=== PATIENT | female | born 1985 | race Caucasian/White ===

== ENCOUNTER 2018-12-13 19:44 | Emergency (ER) | payer BC, OTHER ==
[2018-12-13 20:18] VITALS: TEMP 98.2; BMI 54.8
[2018-12-13] MEDS ORDERED: MECLIZINE HCL 25 MG TABLET (FP) PO ONE (21:14)
[2018-12-13] MEDS ORDERED: SODIUM CHLORIDE 0.9% 500 ML INFUS.BAG IV ONE ×2 (21:14→23:10)
[2018-12-13] MEDS ORDERED: MECLIZINE HCL 25 MG TABLET (FP) ONE (21:46)
--- NOTE | 2018-12-13 21:59 | PDOC ---
History of Present Illness - General Chief Complaint: Lightheaded Stated Complaint: DIZZINESS Time Seen by Provider: 12/13/18 20:50 - History of Present Illness Initial Comments: Ms. Gaines is a 33 y/o female with no significant PMH presenting with headache, vertigo, nausea, vomiting. Reports that she started on a new OCP (femynor) 1 month ago. Reports that she began having a headache and vertigo 1 week ago. Reports that she feels generalized weakness. She has had episodes of vertigo before but reports that this is worse. Nausea/vomiting that started today. Reports mild shortness of breath. Reports that she is currently on her period but does not report any heavy bleeding. Denies chest pain, abdominal pain, shortness of breath, hematemesis, hematochezia, hematuria, dysuria. Reports bilateral ear pain on external movement. Past History - Past Medical History Allergies/Adverse Reactions: Allergies Allergy/AdvReac Type Severity Reaction Status Date / Time No Known Drug Allergies Allergy Verified 11/11/12 16:03 Home Medications: Ambulatory Orders No Home Medications 0 dose .ROUTE UTDICT 11/11/12 Acetaminophen W/ Codeine #3 [Tylenol # 3] 1 - 2 tab PO Q6H PRN #60 tablet Meclizine HCl [Antivert -] 25 mg PO QID PRN #30 tablet 12/13/18 Anemia: No Cardiac Disorders: No CVA: No COPD: No Seizures: No Thyroid Disease: No Other medical history: Vertigo - Suicide/Smoking/Psychosocial Hx Smoking History: Never smoked Have you smoked in the past 12 months: No Hx Alcohol Use: Yes (socially) Substance Use Type: None, Alcohol Review of Systems - Review of Systems Comments:: ROS GENERAL/CONSTITUTIONAL: No fever or chills. Reports general weakness. HEAD, EYES, EARS, NOSE AND THROAT: No change in vision. Reports ear pain on external manipulation without discharge. No sore throat._ CARDIOVASCULAR: No chest pain or shortness of breath_ RESPIRATORY: Denies cough, hemoptysis_ GASTROINTESTINAL: Reports nausea and vomiting. No diarrhea or constipation._ GENITOURINARY: No dysuria, frequency, or change in urination._ MUSCULOSKELETAL: No joint or muscle swelling or pain. No neck or back pain._ SKIN: No rash_ NEUROLOGIC: Reports headache and vertigo. Denies loss of consciousness, or change in strength/sensation._ ENDOCRINE: No increased thirst. No abnormal weight change_ HEMATOLOGIC/LYMPHATIC: No anemia, easy bleeding, or history of blood clots._ ALLERGIC/IMMUNOLOGIC: No hives or skin allergy._ *Physical Exam - Vital Signs Last Vital Signs Temp Pulse Resp BP Pulse Ox 98.2 F 89 20 151/90 99 12/13/18 20:08 12/13/18 20:08 12/13/18 20:08 12/13/18 20:08 12/13/18 20:08 - Physical Exam Comments: GENERAL: Awake, alert, and oriented to person/place/time, in no acute distress_ HEAD: No signs of trauma, normocephalic, atraumatic _ EYES: PERRLA, EOMI, sclera anicteric, conjunctiva clear. No nystagmus on far lateral gaze. ENT: Hearing grossly normal, nares patent, oropharynx clear without exudates. No uvular deviation. Moist mucosa. Mild erythema in bilateral ear canals, TMs are non-erythematous bilaterally. NECK: Normal ROM, supple, no lymphadenopathy, JVD, or masses_ LUNGS: No distress, speaks in full sentences, clear to auscultation bilaterally _ HEART: Regular rate and rhythm, normal S1 and S2, no murmurs appreciated, peripheral pulses normal and equal bilaterally._ ABDOMEN: Soft, nontender, normoactive bowel sounds. No guarding, no rebound. No masses_ EXTREMITIES: Normal inspection, Normal range of motion, no edema. No clubbing or cyanosis_ NEUROLOGICAL: Cranial nerves II through XII grossly intact. Normal speech. Mild swaying on Romberg's. Cerebellar testing intact. Mildly labored extension/ flexion of the hip, but 5/5 strength. Dorsiflexion/plantarflexion 5/5 bilaterally. Full Time strength equal bilaterally 5/5, flexion/extension of arms 5/5 equal bilaterally. SKIN: Warm, Dry, normal turgor, no rashes or lesions noted_ ED Treatment Course - LABORATORY CBC & Chemistry Diagram: 12/13/18 21:45 12/13/18 21:45 Medical Decision Making - Medical Decision Making 33F with hx of new OCP 1 month ago, presents with 1 week of headache and vertigo and 1 day of nausea/vomiting. Obtain CBC, CMP, trop, EKG, TSH, UA, urine preg. 12/13/18 2200 Patient reports that vertigo has improved with antivert. Reports that she still feels nauseated. Reports that pain in her bilateral ears is now bothering her. Reports that it is worsened by external movement. Exam shows mild erythema in the bilateral external ear canals but no erythema on bilateral TMs. 12/13/18 22:44 EKG shows NSR, 61 bpm, no axis deviation, no ST elevation/depression, QTc 430. 12/13/18 23:19 Pt reassessed. Reports vertigo much improved. Urine test positive. Will check serum at patient's request. 12/13/18 23:49 Serum preg negative. POC pelvic US shows no IUP, uterine fibroid, no free fluid in the pelvis. 12/13/18 23:56 Vertigo has resolved. Plan to d/c home with meclizine, f/u PCP and neurologist. *DC/Admit/Observation/Transfer Diagnosis at time of Disposition: Vertigo - Discharge Dispostion Disposition: HOME Condition at time of disposition: Stable Decision to Admit order: No - Prescriptions Prescriptions: Meclizine HCl [Antivert -] 25 mg PO QID PRN #30 tablet PRN Reason: Vertigo - Referrals Referrals: Maureen Brownlee MD [Primary Care Provider] - Todd Montes De Oca MD [Staff Physician] - - Patient Instructions Additional Instructions: Please take Antivert 25 mg four times per day as needed for vertigo. Please make a follow up appointment with your PCP (Dr. Brownlee) and with a neurologist (Dr. Montes De Oca or a neurologist your PCP refers). If you experience any new, worsening, or concerning symptoms, including severe headache, severe nausea/vomiting, weakness, severe dizziness, chest pain, shortness of breath, blood in the vomit or stool or urine, or any other concerning symptoms, please return to the emergency room. - Post Discharge Activity
[2018-12-13 22:01] LABS: BASO % 1.5 % (0-2.0); EOS % 3.6 % (0-4.5); HEMATOCRIT 38.5 % (32.4-45.2); LYMPH % 34.4 % (8-40); MCH 26.9 pg (25.7-33.7); MCHC 33.8 g/dl (32.0-36.0); MEAN CELL VOLUME 79.4 fl (80-96); MEAN PLT VOLUME 10.3 fl (7.5-11.1); MONO % 4.6 % (3.8-10.2); NEUT % 55.9 % (42.8-82.8); PLATELET COUNT 292 K/MM3 (134-434); RBC 4.85 M/mm3 (3.60-5.2); RDW 14.5 % (11.6-15.6); WHITE BLOOD COUNT 10.3 K/mm3 (4.0-10.0)
[2018-12-13 22:13] LABS: INR 1.06 (0.83-1.09); PROTHROMBIN TIME (PATIENT) 12.5 SEC (9.7-13.0)
[2018-12-13 22:21] LABS: EPI CELLS 1.1 /HPF (0-5/HPF); HYALINE CASTS 1 /lpf (0-8); PH,URINE 5.5 (5.0-8.0); URINE APPEARANCE CLEAR; URINE BACTERIA 12.9 /hpf (NEGATIVE); URINE BILIRUBIN NEGATIVE (NEGATIVE); URINE COLOR YELLOW; URINE GLUCOSE (UA) NEGATIVE (NEGATIVE); URINE KETONE NEGATIVE (NEGATIVE); URINE LEUK ESTERASE NEGATIVE (NEGATIVE); URINE NITRITE NEGATIVE (NEGATIVE); URINE PROTEIN NEGATIVE (NEGATIVE); URINE RBC 72 /hpf (0-4); URINE UROBILINOGEN 0.2 mg/dL (0.2-1.0); URINE WBC 2 /hpf (0-5)
[2018-12-13 22:27] VITALS: BP 125/86; PULSE 68
[2018-12-13 22:36] LABS: ALBUMIN 3.6 g/dl (3.4-5.0); BILIRUBIN,TOTAL 0.2 mg/dL (0.2-1); BLOOD UREA NITROGEN 7.2 mg/dL (7-18); CALCIUM 8.9 mg/dL (8.5-10.1); CREATININE 0.7 mg/dL (0.55-1.3); POTASSIUM 4.3 mmol/L (3.5-5.1); TOT PROT 7.2 g/dl (6.4-8.2)
--- NOTE | 2018-12-14 00:06 | PDOC ---
Documentation entered by Krunal Zuleta SCRIBE, acting as scribe for Isabella Wilde MD. Isabella Wilde MD: This documentation has been prepared by the Song bishop Daniel, SCRIBE, under my direction and personally reviewed by me in its entirety. I confirm that the documentation accurately reflects all work, treatment, procedures, and medical decision making performed by me. Attending Attestation - Resident Resident Name: Stephen Alexandre - ED Attending Attestation I have performed the following: I have examined & evaluated the patient, The case was reviewed & discussed with the resident, I agree w/resident's findings & plan - HPI HPI: 12/13/18 21:11 The patient is a 33 year old female with no past medical history here today for evaluation of headache, vertigo, and vomiting. The patient reports that she started a new control 1 week ago and has since had 1 week of headache and vertigo. She notes today that she had nausea and vomiting. She also notes that she has had episodes of vertigo in the past but they have never been this bad. Patient states that her period started on friday (12/09/18) and has been normal. Patient denies headache, lightheadedness. Denies fever, chills. Denies chest pain, shortness of breath. Denies nausea, vomiting, diarrhea, abdominal pain. Allergies: NKDA Social history: Denies tobacco use. PCP: Maureen Brownlee - Physicial Exam PE: 12/13/18 21:11 GENERAL: Awake, alert, and fully oriented, in no acute distress HEAD: No signs of trauma EYES: PERRLA, EOMI, sclera anicteric, conjunctiva clear ENT: Auricles normal inspection, hearing grossly normal, nares patent, oropharynx clear without exudates. Moist mucosa NECK: Normal ROM, supple, no lymphadenopathy, JVD, or masses LUNGS: Breath sounds equal, clear to auscultation bilaterally. No wheezes, and no crackles HEART: Regular rate and rhythm, normal S1 and S2, no murmurs, rubs or gallops ABDOMEN: Soft, nontender, normoactive bowel sounds. No guarding, no rebound. No masses EXTREMITIES: Normal range of motion, no edema. No clubbing or cyanosis. No cords, erythema, or tenderness NEUROLOGICAL: Cranial nerves II through XII grossly intact. Normal speech, normal gait SKIN: Warm, Dry, normal turgor, no rashes or lesions noted. - Medical Decision Making 12/13/18 23:51 Pt has normal exam. Pt has normal HEENT; no nystagmus. She is improved after the meclizine. Pt's UCG shows that she has positive preg test; however Beta qualitative is negative; Beta quant was repeated. 12/13/18 23:56 Pt will be discharged with meclizine. she can follow with her PMD 12/14/18 03:32 Beta quant is negative; pt is stable to go home.
--- NOTE | 2018-12-14 11:08 | EKG ---
Test Reason : Blood Pressure : / mmHG Vent. Rate : 061 BPM Atrial Rate : 061 BPM P-R Int : 158 ms QRS Dur : 078 ms QT Int : 428 ms P-R-T Axes : 035 028 021 degrees QTc Int : 430 ms NORMAL SINUS RHYTHM NORMAL ECG WHEN COMPARED WITH ECG OF 25-DEC-2005 21:21, VENT. RATE HAS DECREASED BY 45 BPM Confirmed by LUZ GILLILAND MD ([id number]) on 12/14/2018 11:08:12 AM Referred By: Confirmed By:LUZ GILLILAND MD
== END 2018-12-14 00:27 | disposition home or self-care (01) ==
LOC: JER 19:44
PROC: 3E0337Z Introduction of Electrolytic and Water Balance Substance into Peripheral Vein, Percutaneous Approach (ICD-10-PCS; principal; 2018-12-13)
DX: R42 Dizziness and giddiness (principal)
CPT/HCPCS: 36415; 80053; 81003; 82550; 84443; 84484; 84702; 84703; 85025; 85610; 93005; 93010; 99283-25